=== PATIENT | female | born 1965 | race Two or more races ===

== ENCOUNTER 2025-05-16 08:15 | Inpatient (IN) | payer OTHER ==
[~2025-05-16] VITALS: Ht 165.1 cm; Wt 111.1 kg
[2025-05-16 09:01] VITALS: BP 130/72
[2025-05-23] MEDS ORDERED: METRONIDAZOLE/SODIUM CHLORIDE 500 MG/100 ML PIGGYBACK IV ONE (14:19)
[2025-05-23] MEDS ORDERED: CEFAZOLIN SODIUM 1,000 MG VIAL ONE (14:19)
[2025-05-23] MEDS ORDERED: VISTASEAL DUAL APPICATOR 1 EACH APPL TOP ONE (17:30)
[2025-05-23] MEDS ORDERED: BUPIVACAINE HCL/MPF 0.5% 30ML VIAL ONE (17:30)
[2025-05-23] MEDS ORDERED: POVIDONE-IODINE 118 ML BOTT TOP ONE (17:31)
[2025-05-23] MEDS ORDERED: DOCUSATE SODIUM 100MG CAP PO SCH (21:00)
[2025-05-23] MEDS ORDERED: RINGERS SOLUTION,LACTATED 1,000 ML IV SCH (21:00)
[2025-05-23] MEDS ORDERED: OxyCODONE HCL 5 MG TABLET (ROXICODONE) PO PRN (21:00)
[2025-05-23] MEDS ORDERED: GABAPENTIN 300 MG CAPSULE PO SCH (21:00)
[2025-05-23] MEDS ORDERED: SIMETHICONE 125 MG CAPSULE PO SCH (21:00)
[2025-05-23] MEDS ORDERED: FAMOTIDINE/PF 20 MG/2 ML VIAL IV PUSH SCH (21:00)
[2025-05-23] MEDS ORDERED: KETOROLAC TROMETHAMINE 30 MG VIAL IV ONE (21:00)
[2025-05-23] MEDS ORDERED: MORPHINE SULFATE 4 MG/ML CARTRIDGE IV PRN (21:00)
[2025-05-23 23:43] LABS: BASO % 0.1 % (0.1-1.2); EOS # 0.03 (0.04-0.54); EOS % 0.4 % (0.7-7.0); LYMPH # 0.88 (1.18-3.74); LYMPH % 12.6 % (19.3-53.1); MEAN PLATELET VOLUME 9.70 fl (9.4-12.4); MONO # 0.63 (0.24-0.82); MONO % 9.1 % (4.7-12.5); NEUT # 5.39 (1.56-6.13); NEUT % 77.5 % (34.0-71.1); RED CELL DISTRIBUTION WIDTH 14.2 % (11.6-14.4)
[2025-05-23 23:56] LABS: BUN CREA RATIO 16.0 (7.0-25.0); CREATININE SERUM 0.62 mg/dL (0.55-1.02); GFR 98.86; GLUCOSE FASTING 151.0 mg/dL (65-100); OSMOLALITY SERUM 283.0 MOSM/KG (275-295)
[2025-05-24] MEDS ORDERED: ACETAMINOPHEN 500 MG GEL..CAP PO SCH
[2025-05-24] MEDS ORDERED: KETOROLAC TROMETHAMINE 30 MG VIAL IM SCH
[2025-05-24] MEDS ORDERED: CEFAZOLIN SODIUM 1,000 MG VIAL IV SCH (01:00)
[2025-05-24] MEDS ORDERED: METOCLOPRAMIDE HCL 5 MG/ML VIAL IV SCH (01:00)
[2025-05-24 04:34] LABS: BASO % 0.4 % (0.1-1.2); EOS # 0.04 (0.04-0.54); EOS % 0.7 % (0.7-7.0); LYMPH # 1.06 (1.18-3.74); LYMPH % 19.3 % (19.3-53.1); MEAN PLATELET VOLUME 9.50 fl (9.4-12.4); MONO # 0.56 (0.24-0.82); MONO % 10.2 % (4.7-12.5); NEUT # 3.81 (1.56-6.13); NEUT % 69.2 % (34.0-71.1); RED CELL DISTRIBUTION WIDTH 14.4 % (11.6-14.4)
[2025-05-24 05:12] LABS: BUN CREA RATIO 15.0 (7.0-25.0); CREATININE SERUM 0.61 mg/dL (0.55-1.02); GFR 100.74; GLUCOSE FASTING 110.0 mg/dL (65-100); OSMOLALITY SERUM 284.0 MOSM/KG (275-295)
[2025-05-24] MEDS ORDERED: TRAMADOL HCL 50 MG TABLET PO PRN (08:00)
[2025-05-24] MEDS ORDERED: DOCUSATE SODIUM 100MG CAP PO SCH (09:00)
[2025-05-24] MEDS ORDERED: ENOXAPARIN SODIUM 40 MG/0.4 ML SYRINGE SUBCUTANEO SCH (09:00)
[2025-05-24] MEDS ORDERED: ONDANSETRON HCL 2 MG/ML VIAL ONE (11:42)
[2025-05-24] MEDS ORDERED: ONDANSETRON HCL 2 MG/ML VIAL IV ONE (11:45)
[2025-05-24 12:44] VITALS: BP 119/76
[2025-05-24 17:00] VITALS: BP 99/60
[2025-05-24] MEDS ORDERED: KETOROLAC TROMETHAMINE 30 MG VIAL IV SCH (17:00)
[2025-05-25] VITALS: BP 124/73
[2025-05-25 04:45] LABS: ALT/SGPT 31.0 U/L (12-78); AST/SGOT 17.0 U/L (15-37); BILIRUBIN TOTAL 0.72 mg/dL (0.3-1.2); BUN CREA RATIO 13.0 (7.0-25.0); CREATININE SERUM 0.67 mg/dL (0.55-1.02); GFR 90.4; GLOBULINA 3.4 G/DL (2.4-3.5); GLUCOSE FASTING 116.0 mg/dL (65-100); OSMOLALITY SERUM 288.0 MOSM/KG (275-295)
[2025-05-25 05:41] LABS: BASO % 0.8 % (0.1-1.2); EOS # 0.15 (0.04-0.54); EOS % 2.9 % (0.7-7.0); LYMPH # 1.20 (1.18-3.74); LYMPH % 23.5 % (19.3-53.1); LYMPHOCYTE MAN 33.0 %; MEAN PLATELET VOLUME 9.70 fl (9.4-12.4); MONO # 0.87 (0.24-0.82); MONO % 17.1 % (4.7-12.5); MONOCYTE MAN 8.0 %; NEUT # 2.82 (1.56-6.13); NEUT % 55.3 % (34.0-71.1); NEUTROPHILS MAN 59.0 %; RED CELL DISTRIBUTION WIDTH 14.7 % (11.6-14.4)
[2025-05-25 08:00] VITALS: BP 120/60; O2SAT 98
== END 2025-05-25 09:22 | disposition home or self-care (01) | DRG 741 ==
LOC: SURG 05-23 08:15 → O/R 05-23 13:00 → SURG 05-23 13:30 → OB/GYN 05-24 11:48
PROVIDERS: Obstetrics & Gynecology; ADMIT Obstetrics & Gynecology Gynecologic Oncology; ATTEND Obstetrics & Gynecology Gynecologic Oncology
PROC: 0DBW4ZZ Excision of Peritoneum, Percutaneous Endoscopic Approach (ICD-10-PCS; 2025-05-23)
PROC: 0UT74ZZ Resection of Bilateral Fallopian Tubes, Percutaneous Endoscopic Approach (ICD-10-PCS; 2025-05-23)
PROC: 0UT24ZZ Resection of Bilateral Ovaries, Percutaneous Endoscopic Approach (ICD-10-PCS; 2025-05-23)
PROC: 07BC4ZZ Excision of Pelvis Lymphatic, Percutaneous Endoscopic Approach (ICD-10-PCS; 2025-05-23)
PROC: 0DNP4ZZ Release Rectum, Percutaneous Endoscopic Approach (ICD-10-PCS; 2025-05-23)
PROC: 0DNN4ZZ Release Sigmoid Colon, Percutaneous Endoscopic Approach (ICD-10-PCS; 2025-05-23)
PROC: 0DNW4ZZ Release Peritoneum, Percutaneous Endoscopic Approach (ICD-10-PCS; 2025-05-23)
PROC: 0UN94ZZ Release Uterus, Percutaneous Endoscopic Approach (ICD-10-PCS; 2025-05-23)
PROC: 07BD4ZZ Excision of Aortic Lymphatic, Percutaneous Endoscopic Approach (ICD-10-PCS; 2025-05-23)
PROC: 07BC4ZZ Excision of Pelvis Lymphatic, Percutaneous Endoscopic Approach (ICD-10-PCS; 2025-05-23)
PROC: 8E0W4CZ Robotic Assisted Procedure of Trunk Region, Percutaneous Endoscopic Approach (ICD-10-PCS; 2025-05-23)
PROC: 0UT94ZZ Resection of Uterus, Percutaneous Endoscopic Approach (ICD-10-PCS; principal; 2025-05-23 13:30)
DX: C54.1 Malignant neoplasm of endometrium (principal)
CPT/HCPCS: 58548; 44180; S2900